=== PATIENT | female | born 1970 | race African-American/Black ===

== ENCOUNTER 2019-08-18 09:00 | Outpatient (CLI) | payer SELFPAY ==
[2016-03-11 09:11] VITALS: BMI 33.2
[~2019-08-18 09:00] MED LIST: HYDROCODONE-APA1 TAB PO
== END 2019-08-18 10:00 | disposition home or self-care (01) ==
LOC: D.MAMMO 09:00
PROVIDERS: ATTEND Family Medicine
DX: N64.4 Mastodynia (principal)